=== PATIENT | male | born 1980 | race Caucasian/White ===

== ENCOUNTER 2017-03-25 07:22 | Day surgery (SDC) | payer OTHER ==
--- NOTE | 2017-03-07 11:39 | HP ---
DATE OF ADMISSION: HISTORY: A 36-year-old man who over the course of the past couple of years has been able to palpate an enlarging soft tissue mass involving the upper inner right thigh. After bringing this to the attention of his physician, he was referred for excision. PAST MEDICAL HISTORY: Essentially nil except for reflux. No history of hypertension, diabetes, respiratory, renal, or hepatic insufficiency. PAST SURGICAL HISTORY: Nil. ALLERGIES: None known. REGULAR MEDICATIONS: Antireflux medications. SOCIAL HISTORY: Negative tobacco; social alcohol, not quantified. FAMILY HISTORY: Father age 69, history of gout. Mother age 67, history of hyperthyroidism and hypercholesterolemia. Siblings: One with hypothyroidism. REVIEW OF SYSTEMS: Otherwise nil. PHYSICAL EXAMINATION: On examination, the patient has a 2-cm palpable soft tissue abnormality involving the medial aspect of the proximal right thigh. The lesion appears to be confined to the subcutaneous space. There are no satellite lesions or regions of lymphadenopathy. IMPRESSION: Soft tissue mass right lower extremity involving the proximal aspect of the medial right thigh. PLAN: Excision of soft tissue mass of right lower extremity under local anesthesia with sedation as the patient is anxious. Indications, alternatives, possible complications were reviewed. Consent obtained. Rivas [id number] cc:
[2017-03-18 11:43] VITALS: BMI 26.4
[~2017-03-25 07:22] MED LIST: LACTATED RINGERS SOLUTION 1,000 ML IV SCH; ONDANSETRON 4 MG/2 ML VIAL IVPUSH PRN; PROMETHAZINE HCL 25 MG/1 ML VIAL IVPUSH PRN; oxyCODONE HCL 5 MG TABLET PO PRN
[2017-03-25] MEDS ORDERED: ceFAZolin SODIUM 1 GM VIAL ONE (08:30)
[2017-03-25] MEDS ORDERED: PROPOFOL 20 ML ONE ×3 (08:30)
[2017-03-25] MEDS ORDERED: MIDAZOLAM HCL 2 MG/2 ML SINGLE DOSE VIAL ONE ×2 (08:32→11:30)
[2017-03-25] MEDS ORDERED: DEXAMETHASONE SOD PHOSPHATE 4 MG/1 ML VIAL ONE (08:34)
[2017-03-25] MEDS ORDERED: KETOROLAC TROMETHAMINE 30 MG/1 ML VIAL ONE (08:34)
[2017-03-25] MEDS ORDERED: ONDANSETRON 4 MG/2 ML VIAL ONE (08:34)
[2017-03-25] MEDS ORDERED: LIDOCAINE 1%-EPI 1:100,000 30 ML MDV IJ ONE (11:36)
[2017-03-25] MEDS ORDERED: LIDOCAINE 1%/EPI 1:100000 (20 ML MULTI DOSE VIAL) INF ONE (11:39)
[2017-03-25] MEDS ORDERED: BACITRACIN 30 GM TUBE TOPICAL OINTMENT ONE (11:51)
[2017-03-25 12:17] VITALS: TEMP 97.6
[2017-03-25 12:40] VITALS: BP 116/62; PULSE 66
--- NOTE | 2017-03-26 11:48 | OP ---
DATE OF OPERATION: 03/25/2017 PREOPERATIVE DIAGNOSIS: Soft tissue mass right proximal thigh. POSTOPERATIVE DIAGNOSIS: Intramuscular lipoma right proximal thigh. PROCEDURE: Excision of right proximal thigh intramuscular lipoma, intermediate wound closure (4cm). OPERATING SURGEON: Arsh Doyle MD KETTLE FIRER: None. ANESTHESIA: Cleve Lunsford MD; Local/MAC (1% lidocaine, 8 mL). HISTORY: A 36-year-old man who presents for excision of a palpable soft tissue mass involving the medial aspect of the proximal right thigh. Indications, alternatives, possible complications reviewed. Consent obtained. PROCEDURE: With the patient in the supine position, after IV sedation, the proximal medial right thigh was prepped and draped in the usual sterile fashion using chlorhexidine. After placement of local anesthesia in a field block, a 4-cm incision was made directly over the mass and deepened into the subcutaneous space. 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 It was freed from its attachment to the surrounding subcutaneous tissues. The mass was noted to be emanating through the fascia of the underlying musculature. The depths of the soft tissue mass were teased up from the intramuscular compartment and the mass was delivered. After adequate hemostasis, the wound was closed in layers. The musculature was close using interrupted 3-0 chromic sutures. The subcutaneous space was closed using interrupted 4-0 Biosyn sutures. The skin edges were approximated using 4-0 Biosyn in a subcuticular fashion. Ultimately, skin edges were approximated using a continuous 5-0 nylon suture. A bacitracin dressing was applied. NEEDLE AND INSTRUMENT COUNT: Correct. ESTIMATED BLOOD LOSS: Minimal. SPECIMEN: Intramuscular lipoma, right proximal thigh. DRAINS: None. Patient tolerated procedure. Procedure was terminated. ARSH DOYLE M.D. [id number] MTDD
--- NOTE | 2017-03-28 13:25 | PATH ---
Surgical Pathology Report Patient Name: SHANIKA RAZO [facility]. Rec. #: [id number] /Age/Gender: 1980 (Age: 36) / M Account: [id number] Location: [facility] Taken: 03/25/2017 Received: 03/25/2017 Reported: 03/28/2017 Physicians: Arsh Doyle M.D. Specimen(s) Received SOFT TISSUE MASS Clinical History Mass right thigh, benign neoplasm Final Diagnosis SOFT TISSUE, PROXIMAL RIGHT THIGH, EXCISION: ANGIOLIPOMA Electronically Signed Victor M Rod M.D. Gross Description Received in formalin labeled "soft tissue mass proximal right thigh," is a 2.3 x 1.7 x 1.0 cm portion of yellow, lobulated adipose tissue. Sectioning reveals yellow, smooth fat. No areas of hemorrhage or necrosis are identified. Telephone Information Clerk sections are submitted in one cassette. /03/25/201703/25/2017
== END 2017-03-25 12:42 | disposition home or self-care (01) ==
LOC: FASU 07:22
PROVIDERS: ATTEND Surgery
PROC: 0JBL0ZZ Excision of Right Upper Leg Subcutaneous Tissue and Fascia, Open Approach (ICD-10-PCS; principal; 2017-03-25 11:40)
DX: D21.21 Benign neoplasm of connective and other soft tissue of right lower limb, including hip (principal)
CPT/HCPCS: 88304-TC